=== PATIENT | male | born 1975 | race Caucasian/White ===

== ENCOUNTER 2020-05-28 12:02 | Outpatient (RCR) | payer BC | END 2020-06-22 | disposition home or self-care (01) | LOC: WCC 12:02 | DX: L98.492 Non-pressure chronic ulcer of skin of other sites with fat layer exposed (principal); T81.31XA Disruption of external operation (surgical) wound, not elsewhere classified, initial encounter; X58.XXXA Exposure to other specified factors, initial encounter; Y92.9 Unspecified place or not applicable; Z88.8 Allergy status to other drugs, medicaments and biological substances; F17.200 Nicotine dependence, unspecified, uncomplicated; K50.90 Crohn's disease, unspecified, without complications | CPT/HCPCS: 11042; G0463 ==